=== PATIENT | male | born 1990 | race African-American/Black ===

== ENCOUNTER 2019-08-01 18:00 | Emergency (ER) | payer SELFPAY ==
[~2019-08-01] VITALS: Ht 190.5 cm; Wt 82.0 kg
[2019-08-01 18:34] VITALS: BP 122/66
== END 2019-08-01 21:03 | disposition home or self-care (01) ==
LOC: ER 18:00
DX: L21.0 Seborrhea capitis (principal)
CPT/HCPCS: 99283